=== PATIENT | male | born 1950 | race Caucasian/White ===

== ENCOUNTER → 2016-11-21 | Outpatient (CLI) | payer MEDICARE ==
[~2016-11-21] MED LIST: ASPI-650 PO; CARV3.1212 PO; EZET10TA3 PO; ISOS10TA6 PO; ISOS20TA3 PO; LISI5TAB7 PO; TAMS0.4C2 PO; TRIA0.2517 PO
== END | disposition home or self-care (01) ==
LOC: RAD 14:04
PROVIDERS: ATTEND Physician Assistant Medical
DX: R07.89 Other chest pain (principal)

== ENCOUNTER → 2016-12-05 | Outpatient (CLI) | payer MEDICARE | END | disposition home or self-care (01) | LOC: CVU 09:51 | PROVIDERS: ATTEND Internal Medicine Cardiovascular Disease | DX: I71.4 Abdominal aortic aneurysm, without rupture (principal); I74.09 Other arterial embolism and thrombosis of abdominal aorta; I77.1 Stricture of artery; I25.10 Atherosclerotic heart disease of native coronary artery without angina pectoris; I25.2 Old myocardial infarction; Z87.891 Personal history of nicotine dependence; Z95.5 Presence of coronary angioplasty implant and graft | CPT/HCPCS: 93978 ==

== ENCOUNTER → 2017-06-11 | Outpatient (CLI) | payer MEDICARE ==
[~2017-06-11] MED LIST changes: +EZET10TA18 PO; -EZET10TA3 PO; -TRIA0.2517 PO; +TRIA0.2576 PO
== END | disposition home or self-care (01) ==
LOC: CARD 14:27
PROVIDERS: ATTEND Internal Medicine
DX: J44.9 Chronic obstructive pulmonary disease, unspecified (principal)
CPT/HCPCS: 94060; 94726; 94729

== ENCOUNTER → 2017-07-13 | Outpatient (CLI) | payer MEDICARE | END | disposition home or self-care (01) | LOC: PETCFH 11:31 | PROVIDERS: ATTEND Internal Medicine Pulmonary Disease | DX: R91.8 Other nonspecific abnormal finding of lung field (principal); R09.1 Pleurisy; J43.9 Emphysema, unspecified | CPT/HCPCS: 71046; 78306; A9503 ==

== ENCOUNTER → 2017-08-06 | Outpatient (CLI) | payer MEDICARE ==
[~2017-08-06] MED LIST changes: +REGADENOSON 0.4 MG/5 ML SYRINGE ONE
== END | disposition home or self-care (01) ==
LOC: RAD 11:58
PROVIDERS: ATTEND Internal Medicine Cardiovascular Disease
DX: I21.19 ST elevation (STEMI) myocardial infarction involving other coronary artery of inferior wall (principal); I71.4 Abdominal aortic aneurysm, without rupture
CPT/HCPCS: 78452; 93017; A9502; J2785

== ENCOUNTER → 2017-08-17 | Outpatient (CLI) | payer MEDICARE ==
[~2017-08-17] MED LIST changes: +OMNIPAQUE 350 MG/ML, 100ML BOTTLE ONE; -REGADENOSON 0.4 MG/5 ML SYRINGE ONE
== END | disposition home or self-care (01) ==
LOC: CFH 09:54
PROVIDERS: ATTEND Specialist
DX: J43.2 Centrilobular emphysema (principal)
CPT/HCPCS: 70491; 71260; 82565; Q9967

== ENCOUNTER → 2017-10-09 | Outpatient (CLI) | payer MEDICARE ==
[~2017-10-09] MED LIST changes: +APIX5TAB PO; +ASPI-496 PO; -OMNIPAQUE 350 MG/ML, 100ML BOTTLE ONE
== END ==
LOC: CVU 11:19
PROVIDERS: ATTEND Internal Medicine Cardiovascular Disease
DX: I71.4 Abdominal aortic aneurysm, without rupture (principal); I25.10 Atherosclerotic heart disease of native coronary artery without angina pectoris; I10 Essential (primary) hypertension; E78.5 Hyperlipidemia, unspecified; Z95.5 Presence of coronary angioplasty implant and graft
CPT/HCPCS: 93978

== ENCOUNTER → 2018-01-31 | Outpatient (CLI) | payer MEDICARE ==
[~2018-01-31] MED LIST changes: +GADOBUTROL 10 MMOL/10 ML PFS ONE
== END | disposition home or self-care (01) ==
LOC: RAD 12:41
PROVIDERS: ATTEND Internal Medicine
DX: R76.8 Other specified abnormal immunological findings in serum (principal); Z88.1 Allergy status to other antibiotic agents
CPT/HCPCS: 73719; A9585

== ENCOUNTER → 2018-03-27 | Outpatient (CLI) | payer MEDICARE ==
[~2018-03-27] MED LIST changes: -GADOBUTROL 10 MMOL/10 ML PFS ONE
== END | disposition home or self-care (01) ==
LOC: CFH 10:56
PROVIDERS: ATTEND Internal Medicine Gastroenterology
DX: I71.4 Abdominal aortic aneurysm, without rupture (principal); R16.1 Splenomegaly, not elsewhere classified; K82.4 Cholesterolosis of gallbladder; K74.69 Other cirrhosis of liver; B18.2 Chronic viral hepatitis C; I25.10 Atherosclerotic heart disease of native coronary artery without angina pectoris
CPT/HCPCS: 76700; J3490

== ENCOUNTER 2018-08-21 14:41 | Outpatient (CLI) | payer MEDICARE ==
[2018-08-21] MEDS ORDERED: OMEP20TA62 PO (15:06)
[2018-08-21] MEDS ORDERED: EVOL140S INJ (15:06)
[2018-08-21] MEDS ORDERED: MONT10TA6 PO (15:06)
[2018-08-21] MEDS ORDERED: LISI5TAB7 PO (15:07)
[2018-08-21] MEDS ORDERED: LISI-167 PO (15:07)
== END 2018-08-21 23:59 | disposition home or self-care (01) ==
LOC: STAR 14:41
PROVIDERS: ATTEND Internal Medicine Gastroenterology
DX: Z02.9 Encounter for administrative examinations, unspecified (principal)

== ENCOUNTER 2018-08-28 09:55 | Day surgery (SDC) | payer MEDICARE ==
[~2018-08-28] VITALS: Ht 175.3 cm; Wt 84.7 kg
[~2018-08-28 09:55] MED LIST changes: +EVOL140S INJ; +LISI-167 PO; +MONT10TA6 PO; +OMEP20TA62 PO
[2018-08-28] MEDS ORDERED: LACTATED RINGERS 1,000 ML IV SCH (10:32)
[2018-08-28 10:33] VITALS: BP 137/82
[2018-08-28] MEDS ORDERED: PROPOFOL 10 MG/ML, 20ML ONE (11:53)
[2018-08-28] MEDS ORDERED: EPHEDRINE 50 MG/ML, 1ML IVPush PRN (12:30)
[2018-08-28] MEDS ORDERED: PROMETHAZINE 12.5 MG SUPP PR PRN (12:30)
[2018-08-28] MEDS ORDERED: MORPHINE SULFATE 4 MG/ML, 1ML IVPush PRN (12:30)
[2018-08-28] MEDS ORDERED: ONDANSETRON 2MG/ML, 2ML IV PRN (12:30)
[2018-08-28] MEDS ORDERED: ALBUTEROL SULFATE 2.5 MG/3 ML NPPB PRN (12:30)
[2018-08-28] MEDS ORDERED: HALOPERIDOL 5 MG/ML IV PRN (12:30)
[2018-08-28] MEDS ORDERED: hydrALAzine 20 MG/ML, 1ML IV PRN (12:30)
[2018-08-28] MEDS ORDERED: MEPERIDINE/PF 25MG/0.5ML IVPush PRN (12:30)
[2018-08-28] MEDS ORDERED: LABETALOL 5MG/ML, 20ML IV PRN (12:30)
[2018-08-28] MEDS ORDERED: FENTANYL PF 100 MCG/2ML IV PRN (12:30)
[2018-08-28] MEDS ORDERED: HYDROmorphone 2 MG/ML, 1ML IVPush PRN (12:30)
[2018-08-28] MEDS ORDERED: ONDANSETRON ODT 8 MG PO PRN (12:30)
[2018-08-28] MEDS ORDERED: OXYcodone 5 MG/5 ML ORAL.SOL UDC PO PRN (12:30)
[2018-08-28] MEDS ORDERED: PROMETHAZINE 25 MG/ML, 1ML IV PRN (12:30)
[2018-08-28] MEDS ORDERED: MIDAZOLAM 1 MG/ML, 2ML IV PRN (12:30)
[2018-08-28] MEDS ORDERED: DIAZEPAM 5 MG/ML, 2ML IVPush PRN (12:30)
== END 2018-08-28 13:10 | disposition home or self-care (01) ==
LOC: OUT 09:55
PROVIDERS: ATTEND Internal Medicine Gastroenterology
DX: K74.60 Unspecified cirrhosis of liver (principal); K64.9 Unspecified hemorrhoids; I25.10 Atherosclerotic heart disease of native coronary artery without angina pectoris; Z86.19 Personal history of other infectious and parasitic diseases; Z88.0 Allergy status to penicillin
CPT/HCPCS: 43235; J2704; J7120

== ENCOUNTER → 2018-10-21 | Outpatient (CLI) | payer MEDICARE ==
[~2018-10-21] MED LIST changes: +CARV6.2512 PO; +RANI300T PO; +REGADENOSON 0.4 MG/5 ML SYRINGE ONE
== END | disposition home or self-care (01) ==
LOC: CFH 09:05
PROVIDERS: ATTEND Internal Medicine Cardiovascular Disease
DX: I21.19 ST elevation (STEMI) myocardial infarction involving other coronary artery of inferior wall (principal); I25.10 Atherosclerotic heart disease of native coronary artery without angina pectoris; I48.0 Paroxysmal atrial fibrillation
CPT/HCPCS: 78452; 93017; A9502; J2785

== ENCOUNTER 2018-12-16 12:47 | Outpatient (CLI) | payer MEDICARE ==
[~2018-12-16 12:47] MED LIST changes: -EZET10TA18 PO; +EZET10TA70 PO; -REGADENOSON 0.4 MG/5 ML SYRINGE ONE
== END 2018-12-16 23:59 | disposition home or self-care (01) ==
LOC: CVU 12:47
PROVIDERS: ATTEND Registered Nurse
DX: I70.213 Atherosclerosis of native arteries of extremities with intermittent claudication, bilateral legs (principal); I25.2 Old myocardial infarction; I77.1 Stricture of artery; Z95.820 Peripheral vascular angioplasty status with implants and grafts; Z87.891 Personal history of nicotine dependence
CPT/HCPCS: 93922; 93925; 93970

== ENCOUNTER → 2020-04-09 | Outpatient (CLI) | payer MEDICARE ==
[~2020-04-09] MED LIST changes: -EVOL140S INJ; +EVOL140S2 INJ
== END | disposition home or self-care (01) ==
LOC: CFH 12:14
PROVIDERS: ATTEND Internal Medicine
DX: I21.19 ST elevation (STEMI) myocardial infarction involving other coronary artery of inferior wall (principal); I25.10 Atherosclerotic heart disease of native coronary artery without angina pectoris; I10 Essential (primary) hypertension
CPT/HCPCS: 78452; 93015; A9502

== ENCOUNTER 2021-01-17 18:42 | Emergency (ER) | payer MEDICARE ==
[~2021-01-17] VITALS: Ht 175.3 cm; Wt 86.0 kg
[~2021-01-17 18:42] MED LIST changes: -ASPI-650 PO; +ASPI325T20 PO; +ISOS20TA10 PO; -ISOS20TA3 PO
[2021-01-17 18:46] VITALS: BP 152/93
[2021-01-17] MEDS ORDERED: ASPIRIN 81 MG TABLET CHEW PO ONE (19:00)
[2021-01-17] MEDS ORDERED: DILTIAZEM 5 MG/ML, 5ML ONE (19:14)
[2021-01-17] MEDS ORDERED: ASPIRIN 81 MG TABLET CHEW ONE (19:16)
[2021-01-17 19:21] LABS: BASOPHILS % (AUTO) 1 % (0-1); EOSINOPHILS % (AUTO) 3 % (1-7); LYMPHOCYTES % (AUTO) 20 % (22-44); MEAN CORPUSCULAR HEMOGLOBIN 32.1 pg (27.5-34.5); MEAN PLATELET VOLUME 8.8 fL (7.4-10.4); MONOCYTES % (AUTO) 11 % (2-9); NEUTROPHILS % (AUTO) 65 % (42-75); PLATELET COUNT 212 x10^3/uL (130-400); RED BLOOD COUNT 5.02 x10^6/uL (4.38-5.82); RED CELL DISTRIBUTION WIDTH 13.1 % (9.4-14.8)
[2021-01-17 19:30] LABS: ALBUMIN 3.2 g/dL (3.4-5.0); ANION GAP 6 mmol/L (5-15); CHLORIDE 107 mmol/L (98-107)
[2021-01-17] MEDS ORDERED: DILTIAZEM 5 MG/ML, 5ML IVPush ONE (19:30)
[2021-01-17 19:36] LABS: ALANINE AMINOTRANSFERASE 21 U/L (12-78); ALKALINE PHOSPHATASE 71 U/L (45-117); BILIRUBIN,TOTAL 0.7 mg/dL (0.2-1.0); CREATININE 1.56 mg/dL (0.7-1.3); TOTAL PROTEIN 7.5 g/dL (6.4-8.2); TROPONIN I < 0.015 ng/mL (0.000-0.045)
[2021-01-17] MEDS ORDERED: PROPOFOL 10 MG/ML, 20ML ONE (20:28)
[2021-01-17] MEDS ORDERED: PROPOFOL 10 MG/ML, 20ML IVPush ONE (20:30)
--- NOTE | 2021-01-17 20:42 | NUR ---
Pt spontaneously converted out of AFIB on his own. repeat EKG obtained. at bedside to witness the conversion. Cardioversion not to be completed at this time. pt to be discharged home.
--- NOTE | 2021-01-17 20:57 | NUR ---
Patient/Caregiver given discharge instructions and they have confirmed that they understand the instructions. Patient ambulatory with steady gait. NAD, all questions answered appropriately, denies additional needs at this time. No personal belongings left in room after discharge.
== END 2021-01-17 20:58 | disposition home or self-care (01) ==
LOC: ED 19:23
DX: I48.0 Paroxysmal atrial fibrillation (principal); I10 Essential (primary) hypertension; E78.5 Hyperlipidemia, unspecified; I25.2 Old myocardial infarction; Z98.61 Coronary angioplasty status; Z88.0 Allergy status to penicillin; Z87.891 Personal history of nicotine dependence
CPT/HCPCS: 36415; 71045; 80053; 84484; 85025; 93005; 96374; 99285

== ENCOUNTER 2021-01-18 13:50 | Emergency (ER) | payer MEDICARE ==
[~2021-01-18] VITALS: Ht 175.3 cm; Wt 86.6 kg
--- NOTE | 2021-01-18 14:46 | NUR ---
Pt in room resting on gurney, pt bedside. Pt connected to all monitors, IV started and labs drawn and sent. Pt aware npo at this time. assessed pt while in room
--- NOTE | 2021-01-18 14:50 | NUR ---
PT CAME IN LAST NIGHT FOR SAME PROBLEM. WAS CONVERTED WITH CARDIZEM. PT TAKES ELEQUIS "I TAKE IT WHEN I FEEL LIKE I NEED IT, I DON'T TAKE IT ALL THE TIME.' PT STATES HE FELT THE FLUTTERING IN HIS CHEST THIS MORNING, "I CAN TELL WHEN IT STARTS".
[2021-01-18 14:57] LABS: BASOPHILS % (AUTO) 1 % (0-1); EOSINOPHILS % (AUTO) 4 % (1-7); LYMPHOCYTES % (AUTO) 18 % (22-44); MEAN CORPUSCULAR HEMOGLOBIN 32.2 pg (27.5-34.5); MEAN CORPUSCULAR HGB CONC 34.9 g/dL (33.2-36.2); MEAN PLATELET VOLUME 8.6 fL (7.4-10.4); MONOCYTES % (AUTO) 10 % (2-9); NEUTROPHILS % (AUTO) 67 % (42-75); PLATELET COUNT 203 x10^3/uL (130-400); RED BLOOD COUNT 4.79 x10^6/uL (4.38-5.82); RED CELL DISTRIBUTION WIDTH 13.1 % (9.4-14.8)
[2021-01-18] MEDS ORDERED: DILTIAZEM 5 MG/ML, 5ML IV ONE (15:00)
[2021-01-18] MEDS ORDERED: SODIUM CHLORIDE FLUSH 10ML SYR IVF ONE (15:00)
[2021-01-18] MEDS ORDERED: DILTIAZEM 5 MG/ML, 5ML ONE (15:09)
[2021-01-18 15:10] LABS: ALANINE AMINOTRANSFERASE 21 U/L (12-78); ALBUMIN 3.1 g/dL (3.4-5.0); ANION GAP 5 mmol/L (5-15); CALCIUM 8.9 mg/dL (8.5-10.1); CHLORIDE 106 mmol/L (98-107); CREATININE 1.42 mg/dL (0.7-1.3)
[2021-01-18 15:14] LABS: ALKALINE PHOSPHATASE 61 U/L (45-117); BILIRUBIN,TOTAL 0.7 mg/dL (0.2-1.0); TOTAL PROTEIN 7.1 g/dL (6.4-8.2); TROPONIN I < 0.015 ng/mL (0.000-0.045)
--- NOTE | 2021-01-18 15:45 | NUR ---
NOTIFIED OF PT HR. HR NOW [phone]
--- NOTE | 2021-01-18 16:01 | NUR ---
MD BEDSIDE FOR REASSESSMENT. PLAN TO MONITOR PT FOR 15-20 MIN. TO REASSESS FOR CARDIOVERSION.
[2021-01-18 16:07] VITALS: BP 103/65
[2021-01-18] MEDS ORDERED: PROPOFOL 10 MG/ML, 20ML IV ONE (17:00)
--- NOTE | 2021-01-18 17:10 | NUR ---
PT EDUCATED FOR CARDIOVERSION CONSENT SIGNED, ROOM SET UP AND ALL SAFETY MEASURES IN PLACE
[2021-01-18] MEDS ORDERED: PROPOFOL 10 MG/ML, 20ML ONE (17:16)
--- NOTE | 2021-01-18 18:00 | NUR ---
CARDIOVERSION COMPLETED, SUCCESSFUL. SEE PRINTOUT FOR VITALS.
== END 2021-01-18 19:02 | disposition home or self-care (01) ==
LOC: ED 14:27
DX: I48.92 Unspecified atrial flutter (principal); R07.89 Other chest pain; I10 Essential (primary) hypertension; I25.2 Old myocardial infarction; I25.10 Atherosclerotic heart disease of native coronary artery without angina pectoris; I48.91 Unspecified atrial fibrillation; E78.5 Hyperlipidemia, unspecified; Z87.891 Personal history of nicotine dependence; Z88.0 Allergy status to penicillin
CPT/HCPCS: 36415; 71045; 80053; 83735; 83880; 84484; 85025; 92960; 93005; 96374; 99152